=== PATIENT | female | born 1975 | race Caucasian/White ===

== ENCOUNTER → 2017-08-26 | Outpatient (CLI) | payer OTHER ==
[~2017-08-26] MED LIST: CHANTIX PO; ERGO500017 PO; IRON PO; MULT-516 PO; NORE1TAB11 PO; ZOLP5TAB6 PO
[2017-08-26 14:27] LABS: ALANINE AMINOTRANSFERASE 18 U/L (12-78); ALBUMIN 3.9 g/dL (3.4-5.0); ANION GAP 7 mmol/L (5-15); CALCIUM 8.7 mg/dL (8.5-10.1); CHLORIDE 108 mmol/L (98-107); CREATININE 0.66 mg/dL (0.55-1.02)
[2017-08-26 14:28] LABS: BASOPHILS # (AUTO) 0.04 x10^3/uL (0-0.1); BASOPHILS % (AUTO) 1 % (0-1); EOSINOPHILS # (AUTO) 0.05 x10^3/uL (0-0.4); EOSINOPHILS % (AUTO) 1 % (1-7); LYMPHOCYTES # (AUTO) 2.24 x10^3/uL (1-3.4); LYMPHOCYTES % (AUTO) 28 % (22-44); MD NO; MEAN CORPUSCULAR HEMOGLOBIN 28.2 pg (27.0-34.8); MEAN CORPUSCULAR HGB CONC 33.2 g/dL (32.4-35.8); MEAN CORPUSCULAR VOLUME 84.8 fL (80-100); MEAN PLATELET VOLUME 8.2 fL (7.4-10.4); MONOCYTES # (AUTO) 0.41 x10^3/uL (0.2-0.8); MONOCYTES % (AUTO) 5 % (2-9); NEUTROPHILS # (AUTO) 5.16 x10^3/uL (1.8-6.8); NEUTROPHILS % (AUTO) 65 % (42-75); PLATELET COUNT 273 x10^3/uL (130-400); RED BLOOD COUNT 4.54 x10^6/uL (3.82-5.3); RED CELL DISTRIBUTION WIDTH 17.9 % (9.6-15.2)
[2017-08-26 14:31] LABS: ALKALINE PHOSPHATASE 55 U/L (45-117); BILIRUBIN,TOTAL 0.2 mg/dL (0.2-1.0); TOTAL PROTEIN 7.8 g/dL (6.4-8.2)
[2017-08-26 14:40] LABS: CULTURE INDICATED? YES; MICROSCOPIC INDICATED
== END | disposition home or self-care (01) ==
LOC: STAR 13:20
PROVIDERS: ATTEND Obstetrics & Gynecology
DX: Z01.818 Encounter for other preprocedural examination (principal); N92.0 Excessive and frequent menstruation with regular cycle
CPT/HCPCS: 36415; 80053; 81001; 84702; 85025; 87086

== ENCOUNTER 2017-09-05 05:37 | Day surgery (SDC) | payer OTHER ==
[~2017-09-05] VITALS: Ht 162.6 cm; Wt 75.9 kg
[2017-09-05] MEDS ORDERED: LACTATED RINGERS 1,000 ML IV SCH (06:01)
[2017-09-05 06:14] LABS: HCG UR SG 1.026 (1.003-1.030)
[2017-09-05 06:16] VITALS: BP 122/79
[2017-09-05] MEDS ORDERED: BUPIVACAINE/PF-EPI 0.25% 1:200K ONE ×3 (06:42→09:03)
[2017-09-05] MEDS ORDERED: SILVER NITRATE STICK TP ONE ×2 (06:43→09:39)
[2017-09-05] MEDS ORDERED: FENTANYL PF 100 MCG/2ML ONE ×2 (07:07→10:20)
[2017-09-05] MEDS ORDERED: MIDAZOLAM 1 MG/ML, 2ML ONE (07:07)
[2017-09-05] MEDS ORDERED: ACETAMINOPHEN 500 MG TABLET ONE (07:20)
[2017-09-05] MEDS ORDERED: SCOPOLAMINE PATCH, 1.5MG PATCH.TD72 TD ONE (07:20)
[2017-09-05] MEDS ORDERED: DEXAMETHASONE 4 MG/ML, 1ML ONE (07:37)
[2017-09-05] MEDS ORDERED: PROPOFOL 10 MG/ML, 20ML ONE (07:37)
[2017-09-05] MEDS ORDERED: GLYCOPYRROLATE 0.2MG/1ML, 5ML ONE (07:37)
[2017-09-05] MEDS ORDERED: NEOSTIGMINE 1 MG/ML, 10ML ONE (07:37)
[2017-09-05] MEDS ORDERED: ONDANSETRON 2MG/ML, 2ML ONE (07:37)
[2017-09-05] MEDS ORDERED: LIDOCAINE-MPF 2% ,5ML ONE (07:37)
[2017-09-05] MEDS ORDERED: ROCURONIUM 10 MG/ML,10ML ONE (07:37)
[2017-09-05] MEDS ORDERED: BUPIVACAINE/PF-EPI 0.25% 1:200K INFIL ONE ×3 (07:56→09:20)
[2017-09-05] MEDS ORDERED: KETOROLAC 30 MG/1 ML IV PRN (08:00)
[2017-09-05] MEDS ORDERED: OXYcodone 5 MG/5 ML ORAL.SOL UDC PO PRN (08:00)
[2017-09-05] MEDS ORDERED: hydrALAzine 20 MG/ML, 1ML IV PRN (08:00)
[2017-09-05] MEDS ORDERED: ALBUTEROL SULFATE 2.5 MG/3 ML NPPB PRN (08:00)
[2017-09-05] MEDS ORDERED: LORazepam 2 MG/ML, 1ML IVPush PRN (08:00)
[2017-09-05] MEDS ORDERED: HYDROmorphone 1 MG/ML, 1ML IV PRN (08:00)
[2017-09-05] MEDS ORDERED: PROMETHAZINE 25 MG/ML, 1ML IV PRN (08:00)
[2017-09-05] MEDS ORDERED: LABETALOL 5MG/ML, 20ML IV PRN (08:00)
[2017-09-05] MEDS ORDERED: THROMBIN 5,000 UNIT VIAL TP ONE ×2 (09:10→09:21)
[2017-09-05] MEDS ORDERED: MEPERIDINE/PF 50 MG/ML ONE (09:48)
[2017-09-05] MEDS ORDERED: KETOROLAC 30 MG/1 ML ONE (10:20)
[2017-09-05] MEDS ORDERED: OXYcodone 5 MG/5 ML ORAL.SOL UDC ONE (10:20)
[2017-09-05] MEDS: FENTANYL PF 100 MCG/2ML IV PRN ×2 (10:24→10:32)
[2017-09-05] MEDS ORDERED: LORazepam 2 MG/ML, 1ML ONE (10:41)
== END 2017-09-05 12:35 ==
LOC: OUT 05:37
PROVIDERS: ATTEND Obstetrics & Gynecology
DX: N92.0 Excessive and frequent menstruation with regular cycle (principal); D25.0 Submucous leiomyoma of uterus; Z98.890 Other specified postprocedural states; Z90.3 Acquired absence of stomach [part of]
CPT/HCPCS: 36415; 49320; 58555; 81025; 86850; 86900; J1100; J1885; J2060; J2175; J2250; J2405; J2704; J2710; J3010; J3490; J7120

== ENCOUNTER → 2017-11-18 | Outpatient (CLI) | payer OTHER ==
[~2017-11-18] MED LIST changes: +ANTI INFLAMMATORY PO; +VARE1TAB21 PO
[2017-11-18 14:35] LABS: BASOPHILS # (AUTO) 0.04 x10^3/uL (0-0.1); BASOPHILS % (AUTO) 1 % (0-1); EOSINOPHILS % (AUTO) 1 % (1-7); LYMPHOCYTES # (AUTO) 2.88 x10^3/uL (1-3.4); LYMPHOCYTES % (AUTO) 38 % (22-44); MD NO; MEAN CORPUSCULAR HEMOGLOBIN 28.9 pg (27.0-34.8); MEAN CORPUSCULAR HGB CONC 33.3 g/dL (32.4-35.8); MEAN CORPUSCULAR VOLUME 86.9 fL (80-100); MEAN PLATELET VOLUME 7.6 fL (7.4-10.4); MONOCYTES # (AUTO) 0.44 x10^3/uL (0.2-0.8); MONOCYTES % (AUTO) 6 % (2-9); NEUTROPHILS # (AUTO) 4.13 x10^3/uL (1.8-6.8); NEUTROPHILS % (AUTO) 54 % (42-75); PLATELET COUNT 304 x10^3/uL (130-400); RED BLOOD COUNT 4.55 x10^6/uL (3.82-5.3); RED CELL DISTRIBUTION WIDTH 14.9 % (9.6-15.2)
[2017-11-18 14:46] LABS: MICROSCOPIC AUTO
[2017-11-18 14:47] LABS: CHLORIDE 107 mmol/L (98-107)
[2017-11-18 14:52] LABS: CULTURE INDICATED? YES
[2017-11-18 14:59] LABS: ALANINE AMINOTRANSFERASE 20 U/L (12-78); ALBUMIN 3.7 g/dL (3.4-5.0); ALKALINE PHOSPHATASE 56 U/L (45-117); ANION GAP 8 mmol/L (5-15); BILIRUBIN,TOTAL 0.3 mg/dL (0.2-1.0); CALCIUM 8.9 mg/dL (8.5-10.1); CREATININE 0.75 mg/dL (0.55-1.02); TOTAL PROTEIN 7.9 g/dL (6.4-8.2)
== END | disposition home or self-care (01) ==
LOC: STAR 13:40
PROVIDERS: ATTEND Obstetrics & Gynecology
DX: Z01.818 Encounter for other preprocedural examination (principal); N92.0 Excessive and frequent menstruation with regular cycle
CPT/HCPCS: 36415; 80053; 81001; 84702; 85025; 87086

== ENCOUNTER 2017-11-28 05:35 | Day surgery (SDC) | payer OTHER ==
[~2017-11-28] VITALS: Ht 162.6 cm; Wt 78.2 kg
[2017-11-28 06:05] VITALS: BP 106/72
[2017-11-28] MEDS ORDERED: LACTATED RINGERS 1,000 ML IV SCH (06:07)
[2017-11-28] MEDS ORDERED: FLUORESCEIN SODIUM 500 MG/5 ML ONE (06:23)
[2017-11-28] MEDS ORDERED: BUPIVACAINE 0.25% ONE (06:23)
[2017-11-28] MEDS ORDERED: EPINEPHRINE 1 MG/ML, 1ML ONE (06:24)
[2017-11-28] MEDS ORDERED: MIDAZOLAM 1 MG/ML, 2ML ONE (07:23)
[2017-11-28] MEDS ORDERED: FENTANYL PF 250 MCG/5ML ONE (07:23)
[2017-11-28] MEDS ORDERED: PROPOFOL 50 ML ONE (07:28)
[2017-11-28] MEDS ORDERED: FAMOTIDINE 20 MG TABLET PO ONE (07:30)
[2017-11-28] MEDS ORDERED: GABAPENTIN 300 MG CAPSULE PO ONE (07:30)
[2017-11-28] MEDS ORDERED: ACETAMINOPHEN 500 MG TABLET PO ONE (07:30)
[2017-11-28] MEDS ORDERED: SCOPOLAMINE PATCH, 1.5MG PATCH.TD72 TD ONE (07:30)
[2017-11-28] MEDS ORDERED: ONDANSETRON ODT 8 MG PO ONE (07:30)
[2017-11-28 07:34] LABS: HCG UR SG 1.029 (1.003-1.030)
[2017-11-28] MEDS ORDERED: ONDANSETRON 2MG/ML, 2ML IV PRN (08:30)
[2017-11-28] MEDS ORDERED: FENTANYL PF 100 MCG/2ML IV PRN (08:30)
[2017-11-28] MEDS ORDERED: ONDANSETRON ODT 8 MG PO PRN (08:30)
[2017-11-28] MEDS ORDERED: HYDROmorphone 1 MG/ML, 1ML IV PRN (08:30)
[2017-11-28] MEDS ORDERED: PROCHLORPERAZINE 5 MG/ML, 2ML IV PRN (08:30)
[2017-11-28] MEDS ORDERED: MEPERIDINE/PF 25MG/0.5ML IVPush PRN (08:30)
[2017-11-28] MEDS ORDERED: DIAZEPAM 5 MG/ML, 2ML IVPush PRN (08:30)
[2017-11-28] MEDS ORDERED: MORPHINE SULFATE 4 MG/ML, 1ML IVPush PRN (08:30)
[2017-11-28] MEDS ORDERED: GLYCOPYRROLATE 0.2MG/1ML, 5ML ONE (09:12)
[2017-11-28] MEDS ORDERED: CEFAZOLIN 1,000 MG ONE (09:12)
[2017-11-28] MEDS ORDERED: DEXAMETHASONE 4 MG/ML, 1ML ONE (09:12)
[2017-11-28] MEDS ORDERED: PROPOFOL 10 MG/ML, 20ML ONE (09:12)
[2017-11-28] MEDS ORDERED: ROCURONIUM 10MG/ML,5ML ONE (09:12)
[2017-11-28] MEDS ORDERED: ONDANSETRON 2MG/ML, 2ML ONE (09:12)
[2017-11-28] MEDS ORDERED: NEOSTIGMINE 1 MG/ML, 10ML ONE (09:12)
[2017-11-28] MEDS ORDERED: SUCCINYLCHOLINE 20 MG/ML, 10ML ONE (09:12)
[2017-11-28] MEDS ORDERED: KETOROLAC 30 MG/1 ML ONE ×2 (09:18→10:12)
[2017-11-28] MEDS ORDERED: OXYcodone 5 MG/5 ML ORAL.SOL UDC ONE (10:02)
[2017-11-28] MEDS ORDERED: FENTANYL PF 100 MCG/2ML ONE (10:02)
[2017-11-28] MEDS: OXYcodone 5 MG/5 ML ORAL.SOL UDC PO PRN ×2 (10:07→15:39)
== END 2017-11-28 16:20 | disposition home or self-care (01) ==
LOC: OUT 05:35
PROVIDERS: ATTEND Obstetrics & Gynecology
DX: D25.2 Subserosal leiomyoma of uterus (principal); N80.9 Endometriosis, unspecified; Z98.890 Other specified postprocedural states; Z79.899 Other long term (current) drug therapy; Z83.3 Family history of diabetes mellitus; Z80.3 Family history of malignant neoplasm of breast; Z80.49 Family history of malignant neoplasm of other genital organs; F17.210 Nicotine dependence, cigarettes, uncomplicated; G81.91 Hemiplegia, unspecified affecting right dominant side
CPT/HCPCS: 36415; 58552; 81025; 86850; 86900; 88307; J0171; J0330; J0690; J1100; J1885; J2250; J2405; J2704; J2710; J3010; J3490; J7120; Q0162

== ENCOUNTER 2019-11-25 14:07 | Outpatient (CLI) | payer OTHER ==
[2019-11-25] MEDS ORDERED: ESCI10TA PO (15:00)
[2019-11-25] MEDS ORDERED: VITAMIN D3 PO (15:00)
[2019-11-25] MEDS ORDERED: CYAN25009 PO (15:00)
== END 2019-11-25 23:59 | disposition home or self-care (01) ==
LOC: STAR 14:07
PROVIDERS: ATTEND Otolaryngology
DX: Z01.812 Encounter for preprocedural laboratory examination (principal); J34.2 Deviated nasal septum; J31.0 Chronic rhinitis; J32.2 Chronic ethmoidal sinusitis; J32.1 Chronic frontal sinusitis; J32.0 Chronic maxillary sinusitis; Z20.828 Contact with and (suspected) exposure to other viral communicable diseases
CPT/HCPCS: 36415; 87635

== ENCOUNTER 2019-11-30 05:57 | Day surgery (SDC) | payer OTHER ==
[~2019-11-30] VITALS: Ht 162.6 cm; Wt 88.0 kg
[~2019-11-30 05:57] MED LIST changes: +CYAN25009 PO; +ESCI10TA PO; +VITAMIN D3 PO
[2019-11-30 06:40] VITALS: BP 132/87
[2019-11-30] MEDS ORDERED: FLUORESCEIN SODIUM 500 MG/5 ML ONE (06:48)
[2019-11-30] MEDS ORDERED: EPINEPHRINE TOPICAL SOLN 1 MG/ML, 30ML ONE (06:48)
[2019-11-30] MEDS ORDERED: BACITRACIN OINT 500U/GM, 15 GM ONE (06:48)
[2019-11-30] MEDS ORDERED: OXYMETAZOLINE NASAL SPRAY 0.05%, 15ML ONE (06:49)
[2019-11-30] MEDS ORDERED: EPINEPHRINE 1 MG/ML, 1ML ONE (06:49)
[2019-11-30] MEDS ORDERED: LIDOCAINE 1%, 20ML ONE (06:49)
[2019-11-30] MEDS ORDERED: BACITRACIN 50,000 UNIT ONE (06:49)
[2019-11-30] MEDS ORDERED: LACTATED RINGERS 1,000 ML IV SCH (07:00)
[2019-11-30] MEDS ORDERED: CHLORHEXIDINE 15 ML UDC MM ONE (07:00)
[2019-11-30] MEDS ORDERED: LIDOCAINE-MPF 1%, 2ML INFIL ONE (07:00)
[2019-11-30] MEDS ORDERED: SUCCINYLCHOLINE 20 MG/ML, 10ML ONE (07:39)
[2019-11-30] MEDS ORDERED: NEOSTIGMINE 1 MG/ML, 10ML ONE (07:39)
[2019-11-30] MEDS ORDERED: ONDANSETRON 2MG/ML, 2ML ONE (07:39)
[2019-11-30] MEDS ORDERED: PROPOFOL 10 MG/ML, 20ML ONE (07:39)
[2019-11-30] MEDS ORDERED: MIDAZOLAM 1 MG/ML, 2ML ONE (07:39)
[2019-11-30] MEDS ORDERED: ROCURONIUM 10MG/ML,5ML ONE (07:39)
[2019-11-30] MEDS ORDERED: FENTANYL PF 250 MCG/5ML ONE (07:39)
[2019-11-30] MEDS ORDERED: SCOPOLAMINE 1MG PATCH TD ONE (07:39)
[2019-11-30] MEDS ORDERED: DEXAMETHASONE 4 MG/ML, 1ML ONE (07:39)
[2019-11-30] MEDS ORDERED: EPHEDRINE 50 MG/ML, 1ML ONE (07:39)
[2019-11-30] MEDS ORDERED: KETOROLAC 30 MG/1 ML IV PRN (09:00)
[2019-11-30] MEDS ORDERED: OXYcodone 5 MG/5 ML ORAL.SOL UDC PO PRN (09:00)
[2019-11-30] MEDS ORDERED: LABETALOL 5MG/ML, 20ML IV PRN (09:00)
[2019-11-30] MEDS ORDERED: MEPERIDINE/PF 25MG/0.5ML IVPush PRN (09:00)
[2019-11-30] MEDS ORDERED: HYDROmorphone 2 MG/ML, 1ML IVPush PRN (09:00)
[2019-11-30] MEDS ORDERED: DIAZEPAM 5 MG/ML, 2ML IVPush PRN (09:00)
[2019-11-30] MEDS ORDERED: ACETAMINOPHEN 325 MG TABLET PO PRN (09:00)
[2019-11-30] MEDS ORDERED: ALBUTEROL SULFATE 2.5 MG/3 ML NPPB PRN (09:00)
[2019-11-30] MEDS ORDERED: hydrALAzine 20 MG/ML, 1ML IV PRN (09:00)
[2019-11-30] MEDS ORDERED: PROMETHAZINE 25 MG/ML, 1ML IV PRN (09:00)
[2019-11-30] MEDS ORDERED: FENTANYL PF 100 MCG/2ML IV PRN (09:00)
[2019-11-30] MEDS ORDERED: FENTANYL PF 100 MCG/2ML ONE (09:46)
[2019-11-30] MEDS ORDERED: OXYcodone 5 MG/5 ML ORAL.SOL UDC ONE (09:46)
[2019-11-30] MEDS ORDERED: ACETAMINOPHEN 650 MG/20.3 ML UDC ONE (09:46)
== END 2019-11-30 12:00 | disposition home or self-care (01) ==
LOC: OUT 05:57
PROVIDERS: ATTEND Otolaryngology
DX: J32.0 Chronic maxillary sinusitis (principal); J34.2 Deviated nasal septum; J34.3 Hypertrophy of nasal turbinates; Z79.899 Other long term (current) drug therapy
CPT/HCPCS: 30140; 30520; 31240; 31255; 31256; 88304; 88311; J0171; J0690; J1100; J2250; J2405; J2704; J2710; J3010; J7120; J0330

== ENCOUNTER 2019-12-07 05:55 | Day surgery (SDC) | payer OTHER ==
[~2019-12-07] VITALS: Ht 162.6 cm; Wt 88.3 kg
[~2019-12-07 05:55] MED LIST changes: +CEFAZOLIN 1,000 MG ONE; +DEXAMETHASONE 4 MG/ML, 1ML ONE; +EPHEDRINE 50 MG/ML, 1ML ONE; +FENTANYL PF 250 MCG/5ML ONE; +GLYCOPYRROLATE 0.2MG/1ML, 5ML ONE; +MIDAZOLAM 1 MG/ML, 2ML ONE; +NEOSTIGMINE 1 MG/ML, 10ML ONE; +ONDANSETRON 2MG/ML, 2ML ONE; +PROPOFOL 10 MG/ML, 20ML ONE; +ROCURONIUM 10MG/ML,5ML ONE; +SCOPOLAMINE 1MG PATCH TD ONE; +SUCCINYLCHOLINE 20 MG/ML, 10ML ONE
[2019-12-07 06:48] VITALS: BP 121/88
[2019-12-07] MEDS ORDERED: LIDOCAINE-MPF 2% ,5ML ONE (06:52)
[2019-12-07] MEDS ORDERED: PROPOFOL 10 MG/ML, 20ML ONE (06:52)
[2019-12-07] MEDS ORDERED: MIDAZOLAM 1 MG/ML, 2ML ONE (06:52)
[2019-12-07] MEDS ORDERED: DEXAMETHASONE 4 MG/ML, 1ML ONE (06:52)
[2019-12-07] MEDS ORDERED: ROCURONIUM 10MG/ML,5ML ONE (06:52)
[2019-12-07] MEDS ORDERED: FENTANYL PF 250 MCG/5ML ONE (06:52)
[2019-12-07] MEDS ORDERED: GLYCOPYRROLATE 0.2MG/1ML, 5ML ONE (06:52)
[2019-12-07] MEDS ORDERED: OXYMETAZOLINE NASAL SPRAY 0.05%, 15ML ONE (06:54)
== END 2019-12-07 08:00 | disposition home or self-care (01) ==
LOC: OUT 05:55
PROVIDERS: ATTEND Otolaryngology
DX: J32.8 Other chronic sinusitis (principal); F17.210 Nicotine dependence, cigarettes, uncomplicated; Z20.828 Contact with and (suspected) exposure to other viral communicable diseases; Z98.890 Other specified postprocedural states; Z79.899 Other long term (current) drug therapy; Z72.89 Other problems related to lifestyle
CPT/HCPCS: 31237; 87635; J1100; J2250; J2704; J3010; J0690; J2405; J2710; J0330